=== PATIENT | female | born 1955 | race Caucasian/White ===

== ENCOUNTER → 2016-04-08 | Outpatient (REF) | payer BC ==
[~2016-04-08] MED LIST: ALBU8.5H2 INH; AMLO10TA82 PO; ASCO500T20 PO; ASPI-586 PO; ATOR20TA PO; BUDE10.2 IH; CA C1TAB74 PO; CMBV14CC; DOXY100T41 PO; FLT22013; LOSA1TAB16 PO; METF1000 PO; METO50TA7; MNTL10T PO; MULT-890 PO; NIAC500T9 PO; POTA99TA7 PO; PRX20T PO; TIOT18CA IH; VITA1CAP PO
== END ==
LOC: LAB 11:58
PROVIDERS: ATTEND Family Medicine
DX: N61.0 Mastitis without abscess (principal); B95.62 Methicillin resistant Staphylococcus aureus infection as the cause of diseases classified elsewhere
CPT/HCPCS: 87070

== ENCOUNTER → 2016-04-10 | Outpatient (REF) | payer BC ==
[2016-04-10 11:39] LABS: ALBUMIN 4.1 g/dL (3.4-5.0); ANION GAP 17.8 MEQ/L (3-15); CALCULATED IONIZED CALCIUM 4.5 mg/dL (3.8-4.6); TOTAL PROTEIN 7.1 g/dL (6.4-8.5)
== END ==
LOC: LAB 10:51
PROVIDERS: ATTEND Family Medicine
DX: E11.9 Type 2 diabetes mellitus without complications (principal)
CPT/HCPCS: 80053; 83036